=== PATIENT | male | born 1980 | race Caucasian/White ===

== ENCOUNTER → 2020-07-24 | Outpatient (CLI) | payer OTHER ==
[~2020-07-24] MED LIST: LEXAPRO5 MG PO; RANITIDINE HCL150 MG PO
== END ==
LOC: EXRD 08:23
DX: M25.531 Pain in right wrist (principal)
CPT/HCPCS: 73110

== ENCOUNTER → 2021-01-28 | Outpatient (CLI) | payer OTHER | LOC: ECHO 10:00 | DX: I34.0 Nonrheumatic mitral (valve) insufficiency (principal) | CPT/HCPCS: ECHO; 93306 ==

== ENCOUNTER → 2021-12-25 | Outpatient (CLI) | payer OTHER | LOC: EXRD 09:18 | DX: S99.921A Unspecified injury of right foot, initial encounter (principal); X58.XXXA Exposure to other specified factors, initial encounter | CPT/HCPCS: 73630 ==